=== PATIENT | male | born 1980 | race Caucasian/White ===

== ENCOUNTER 2016-12-26 08:56 | Emergency (ER) | payer SELFPAY ==
--- NOTE | 2016-12-26 09:03 | ED Physician Documentation ---
General Adult - HISTORIAN Historian: patient - HPI Chief Complaint: General Adult Further Comments: yes - ROS CONST: no problems. denies: fever - PAST HX Past History: none Other History: none Surgeries/Procedures: other (myringotomy tubes) Allergies/Adverse Reactions: Allergies Allergy/AdvReac Type Severity Reaction Status Date / Time No Known Allergies Allergy Unverified 12/26/16 09:10 Home Medications: Ambulatory Orders Medication Instructions Recorded NK [NK] 12/26/16 - SOCIAL HX Smoking History: less than 1 pack/day (1/2 ppd). denies: chew Alcohol Use: none Drug Use: none - FAMILY HX Family History: No - REVIEWED ASSESSMENTS Nursing Assessment Reviewed: Yes Vitals Reviewed: Yes Progress - Progress Progress: 10:01 Swelling seems to be doing some better. Is able to swallow and breath OK. Is able to protect airway. ED Results Lab/Radiology - Orders Orders: ED Orders Category Date Time Status Rapid Strep [GRP A STREP SCREEN] Routine Lab 12/26/16 Ordered General Adult Physical Exam - PHYSICAL EXAM GENERAL APPEARANCE: mild distress EENT: eye inspection normal, no signs of dehydration, pharyngeal erythema (mild) , other (uvala and tonsilar pillars mildly swollen and erythematous. ). No: exudate NECK: normal inspection, thyroid normal, supple. No: lymphadenopathy RESPIRATORY: no resp distress, chest non-tender CVS: reg rate & rhythm, heart sounds normal, equal pulses SKIN: warm/dry, normal color EXTREMITIES: non-tender NEURO: oriented X3 Discharge Clincal Impression: Swollen uvula Referrals: Primary Doctor,No [Primary Care Provider] - 2 Days Additional Instructions: Suck on some ice chips, watch for further swelling. If you develop swallowing and / or breathing issues to return to the ED. Take benadryl 25mg every 4 hours as needed. This may make you drowsy. Home Medications: Ambulatory Orders NK [NK] 12/26/16 Condition: Stable Disposition: 01 HOME, SELF-CARE Decision to Admit: NO Date of Decison to Admit: 12/26/16 Decision Time: 09:59
[2016-12-26] MEDS ORDERED: DEXAMETHASONE SOD PHOS 4 MG/ML VIAL IM ONE (09:09)
[2016-12-26] MEDS ORDERED: methylPREDNISolone ACETATE 80 MG/ML VIAL IM ONE (09:09)
[2016-12-26 10:16] VITALS: BP 160/100
== END 2016-12-26 10:13 | disposition home or self-care (01) ==
LOC: ED 08:56
DX: J02.9 Acute pharyngitis, unspecified (principal)
CPT/HCPCS: 87070; 87880; J1040; J1100; 96372; 99283

== ENCOUNTER 2018-04-02 13:45 | Emergency (ER) | payer SELFPAY ==
[2018-04-02 13:57] VITALS: BP 151/114
--- NOTE | 2018-04-02 14:03 | ED Physician Documentation ---
Sore Throat/Dental Pain - HISTORIAN Historian: patient - HPI Stated Complaint: Dental pain Chief Complaint: Dental Pain Additional Information: 38yo white male who two days ago sustained a fractured tooth on the right lower molar. Has been having pain in the tooth since yesterday. Has been taking Ibuprofen, 5 tablets every 5 hours. Has used OTC medication without much help. Has taken some AMoxil over the last two days. No fever or chills. Has called a dentist and si scheduled for appointment in 10 days. - ROS CONST: no problems - PAST HX Past History: none Other History: none Immunizations: referred to PCP Allergies/Adverse Reactions: Allergies Allergy/AdvReac Type Severity Reaction Status Date / Time No Known Allergies Allergy Verified 04/02/18 13:59 Home Medications: Ambulatory Orders Medication Instructions Recorded Clindamycin HCl [Cleocin] 300 mg PO QID #28 capsule 04/02/18 Tramadol HCl [Ultram] 50 mg PO Q4 PRN #20 tablet 04/02/18 - SOCIAL HX Smoking History: greater than 1 pack/day Alcohol Use: none Drug Use: none - FAMILY HX Family History: No - VITAL SIGNS Vital Signs: Vital Signs Temp Pulse Resp BP Pulse Ox 97.8 F 17 151/114 04/02/18 13:54 04/02/18 13:54 04/02/18 13:54 - REVIEWED ASSESSMENTS Nursing Assessment Reviewed: Yes Vitals Reviewed: Yes Dental Pain Physical Exam - EXAM General Appearance: alert, mild distress Head/Neck: head nml inspection, trachea midline, no lymphadenopathy Mouth/Throat: lips nml, pharynx nml, voice nml, no air way problems, dental tenderness (right lower molar), gum swelling around teeth, widespread dental decay (missing teeth) Ear/Nose: nml inspection Respiratory: no resp. distress, breath sounds nml. No: respiratory distress CVS: reg. rate & rhythm, heart sounds nml Skin: warm/dry Neuro/Psych: none Discharge Clincal Impression: Pain, dental Prescriptions: Clindamycin HCl [Cleocin] 300 mg PO QID #28 capsule Tramadol HCl [Ultram] 50 mg PO Q4 PRN #20 tablet PRN Reason: Pain Referrals: Primary Doctor,No [Primary Care Provider] - 2 Days Additional Instructions: Take Aleve 220mg tablets, three tablets twice a day with food. Take Tramadol for break through pain. See a dentist for further care. Condition: Stable Disposition: 01 HOME, SELF-CARE Decision to Admit: NO Date of Decison to Admit: 04/02/18 Decision Time: 14:17
[2018-04-02] MEDS ORDERED: KETOROLAC TROMETHAMINE 60 MG/2 ML VIAL IM ONE (14:07)
[2018-04-02] MEDS ORDERED: KETOROLAC TROMETHAMINE 60 MG/2 ML VIAL ONE (14:08)
== END 2018-04-02 14:15 | disposition home or self-care (01) ==
LOC: ED 13:45
DX: K08.89 Other specified disorders of teeth and supporting structures (principal)
CPT/HCPCS: 96372; 99283; J1885